=== PATIENT | female | born 1960 | race Hispanic/Latino ===

== ENCOUNTER → 2025-08-31 | Outpatient (REF) | payer MEDICARE ==
[~2025-08-31] MED LIST: HYDROCODON-ACE1 EA11 PO; LEVOTHYROXINE112 MCG PO; MULTI-VITAMIN1 EACH PO; VITAMIN D3 COM1 EACH PO
== END ==
LOC: RAD 10:40
PROVIDERS: ATTEND Family Medicine
DX: M25.562 Pain in left knee (principal); M25.561 Pain in right knee; M17.0 Bilateral primary osteoarthritis of knee